=== PATIENT | female | born 1940 | race Caucasian/White ===

== ENCOUNTER → 2016-11-09 | Outpatient (CLI) | payer OTHER ==
[~2016-11-09] MED LIST: CALC500C70 PO; CHOL100010 PO; CHOL20009 PO; DICY10CA12 PO; ENOX80IN SQ; LACT1CAP6 PO; LORA-741 PO; MAGN250T3 PO; MISCCAP80; MULTTAB58 PO; WARF2TAB PO; WARF3TAB PO; ZC25 PO; ZNTT/150 PO; [UNRECOGNIZED DRUG - CODE] PO
[2016-11-09 11:18] LABS: BASO % 1.4 %; BASO ABS # 0.07 K/uL (0-0.2); COMPLETE YES; EOS % 3.1 %; IG% 0.2 %; LYMPH % 32.7 %; MEAN CELL VOLUME 96.4 fL (80-100); MEAN CORPUSCULAR HEMOGLOBIN 30.8 pg (25-34); MEAN PLATELET VOLUME 10.8 fL (7.4-10.4); MONO % 7.2 %; NEUT % 55.4 %; PLATELET COUNT 319 K/uL (130-400); RED BLOOD COUNT 4.67 M/uL (4.2-5.4); WHITE BLOOD COUNT 4.89 K/uL (4.8-10.8)
[2016-11-09 11:43] LABS: CALCIUM 9.1 mg/dl (8.5-10.1)
[2016-11-09 11:49] LABS: ALT/SGPT 32 U/L (12-78); AST/SGOT 23 U/L (15-37); BLOOD UREA NITROGEN 22 mg/dl (7-18); BUN/CREATININE RATIO 19.7 (10-20); CARBON DIOXIDE 30 mmol/L (21-32); CHLORIDE 105 mmol/L (98-107); GLUCOSE 92 mg/dl (70-99); POTASSIUM 4.2 mmol/L (3.5-5.1); SODIUM 142 mmol/L (136-145)
== END | disposition home or self-care (01) ==
LOC: C.LABBC 07:44
PROVIDERS: ATTEND Internal Medicine
DX: M85.80 Other specified disorders of bone density and structure, unspecified site (principal); M19.90 Unspecified osteoarthritis, unspecified site; Z79.01 Long term (current) use of anticoagulants; D68.51 Activated protein C resistance

== ENCOUNTER → 2017-01-01 | Day surgery (SDC) | payer OTHER ==
[2016-12-21 12:02] VITALS: Ht 160 cm; Wt 56.8 kg
[~2017-01-01] VITALS: Ht 160 cm; Wt 56.8 kg
[~2017-01-01] MED LIST changes: +ATROPINE SULFATE 0.1 MG/ML 5ML SYR IV PRN; -CHOL100010 PO; -DICY10CA12 PO; +EpHEDrine SULFATE INJ 50 MG/ML AMP IV PRN; -LACT1CAP6 PO; +LIDOCAINE HCL 2% 2 ML VIAL (20MG/ML) ONE; +PROPOFOL IV EMULSION 10 MG/ML 20 ML VIAL IV ONE; +SODIUM CHLORIDE 0.9% 500ML 500 ML IV ONE; -[UNRECOGNIZED DRUG - CODE] PO
--- NOTE | 2017-01-01 14:12 | Endo History and Physical ---
History & Physical Date of Service: Jan 01, 2017. Chief Complaint: Reflux and atypical chest pain Referring Physician: Dr. Cummings History of Present Illness 76 yo CF who presents for EGD secondary to atypical chest pain and GERD. Past Medical History Arthritis, Pulmonary Emboli, Reflux, Blood Dyscrasias, Hypertension, Thrombophlebitis Past Surgical History Hx Cardiac Surgery: No Hx Abdominal Surgery: Yes (, OVARIAN SURGERY FOR FERTILITY) Hx Post-Op Nausea and Vomiting: No Hx Orthopedic: Yes (RT BUNIONECTOMY) Hx Urinary Tract Surgery: Yes (URETHRA LASER) Family History IBD Social History Smoking Status: Former Smoker Hx Substance Use: No Hx Alcohol Use: Yes (RARELY A GLASS OF WINE) Allergies Coded Allergies: Meperidine (Verified Allergy, Unknown, "CAN'T REMEMBER", 01/01/17) Phenobarbital (Verified Allergy, Unknown, ITCHING, 01/01/17) Tamsulosin (Verified Adverse Reaction, Severe, FAINTED, 01/01/17) Current Medications Reported Home Medications Medications Dose Route/Sig Max Daily Dose Days Date Category Dose Instructions Probiotic (Probiotic Product) 1 Cap Cap 01/01/17 Reported Multivitamin (Multiple Vitamin) 1 Tab Tab 1 Dose PO BID 12/21/16 Reported Magnesium 250 mg (Magnesium) 1 Tab Tab 1 Tab PO QPM 12/21/16 Reported Vitamin D (Cholecalciferol) 2,000 Unit Tab 1 Tab PO QAM 12/21/16 Reported Bisoprolol Fumarate/[place] 2.5-6.25 mg (Bisoprolol Fumarate) 1 Ea Tab 1 Tab PO QAM 12/21/16 Reported Coumadin (Warfarin Sodium) 3 Mg Tab 3 Mg PO 5XWK 30 06/15/15 Reported Coumadin (Warfarin Sodium) 2 Mg Tab 2 Mg PO 2XWK 30 06/15/15 Reported TAKES SUN AND SUNDAY Ativan (Lorazepam) 0.5 Mg Tab 0.5 Mg PO HS PRN 06/15/15 Reported Zantac (Ranitidine HCl) 150 Mg Tab 1 Tab PO BID 30 06/15/15 Reported Os-Gregorio 500 Plus D (Calcium/Vitamin D) Tab 1 Tab PO QPM 06/15/15 Reported Vital Signs Weight (Kilograms): 56.82 Height (Feet): 5 Height (Inches): 3 Date Time Temp Pulse Resp B/P (MAP) Pulse Ox O2 Delivery O2 Flow Rate FiO2 01/01/17 13:50 36.4 78 20 159/78 (105) 100 Room Air Physical Exam General Appearance: WD/WN, no apparent distress Respiratory/Chest: Auscultation: breath sounds normal Cardiovascular: Heart Auscultation: RRR Abdomen: Bowel Sounds: normal Inspection & Palpation: soft, non-distended, no tenderness, guarding & rebound Assessment and Plan Assessment: 76 yo CF who presents for EGD secondary to atypical chest pain and GERD. Plan: Proceed with EGD.
--- NOTE | 2017-01-01 14:31 | GI REPORT ---
Procedure Date: 01/01/2017 2:13 PM Procedure: Upper GI endoscopy Indications: Gastro-esophageal reflux disease, Chest pain (non cardiac) Medicines: Monitored Anesthesia Care Complications: No immediate complications. Estimated Blood Loss: Estimated blood loss: none. Procedure: Pre-Anesthesia Assessment: - Prior to the procedure, a History and Physical was performed, and patient medications and allergies were reviewed. The patient's tolerance of previous anesthesia was also reviewed. The risks and benefits of the procedure and the sedation options and risks were discussed with the patient. All questions were answered, and informed consent was obtained. Prior Anticoagulants: The patient last took Coumadin (warfarin) 4 days and Lovenox (enoxaparin) 2 days prior to the procedure. ASA Grade Assessment: III - A patient with severe systemic disease. After reviewing the risks and benefits, the patient was deemed in satisfactory condition to undergo the procedure. After obtaining informed consent, the endoscope was passed under direct vision. Throughout the procedure, the patient's blood pressure, pulse, and oxygen saturations were monitored continuously. The scope was introduced through the mouth, and advanced to the second part of duodenum. The upper GI endoscopy was accomplished without difficulty. The patient tolerated the procedure well. Findings: The Z-line was irregular. Biopsies were taken with a cold forceps for histology. A small hiatus hernia was present. The examined duodenum was normal. Impression: - Z-line irregular. Biopsied. - Small hiatus hernia. - Normal examined duodenum. Recommendation: - Resume previous diet. - Continue present medications. - Await pathology results. - Return to GI clinic as previously scheduled. Arnel Gracia, DO 01/01/2017 2:30:44 PM This report has been signed electronically. Note Initiated On: 01/01/2017 2:13 PM I attest to the content of the Intraoperative Record and orders documented therein, exceptions below
--- NOTE | 2017-01-01 14:32 | Discharge Instructions ---
Endoscopy Patient Instructions Date / Procedure(s) Performed Jan 01, 2017. EGD Allergy Information Coded Allergies: Meperidine (Verified Allergy, Unknown, "CAN'T REMEMBER", 01/01/17) Phenobarbital (Verified Allergy, Unknown, ITCHING, 01/01/17) Tamsulosin (Verified Adverse Reaction, Severe, FAINTED, 01/01/17) Discharge Date / Findings Jan 01, 2017. Esophageal biopsies Hiatal hernia Medication Instructions Stopped Medication(s): Coumadin stopped on 12-28-16. OK to resume all medications today as prescribed Reported Home Medications Medications Dose Route/Sig Max Daily Dose Days Date Category Dose Instructions Lovenox (Enoxaparin Sodium) 80 Mg/0.8 Ml Inj 80 Mg SQ DAILY 01/01/17 Reported Probiotic (Probiotic Product) 1 Cap Cap 01/01/17 Reported Multivitamin (Multiple Vitamin) 1 Tab Tab 1 Dose PO BID 12/21/16 Reported Magnesium 250 mg (Magnesium) 1 Tab Tab 1 Tab PO QPM 12/21/16 Reported Vitamin D (Cholecalciferol) 2,000 Unit Tab 1 Tab PO QAM 12/21/16 Reported Bisoprolol Fumarate/[place] 2.5-6.25 mg (Bisoprolol Fumarate) 1 Ea Tab 1 Tab PO QAM 12/21/16 Reported Coumadin (Warfarin Sodium) 3 Mg Tab 3 Mg PO 5XWK 30 06/15/15 Reported Coumadin (Warfarin Sodium) 2 Mg Tab 2 Mg PO 2XWK 30 06/15/15 Reported TAKES SUN AND SUNDAY Ativan (Lorazepam) 0.5 Mg Tab 0.5 Mg PO HS PRN 06/15/15 Reported Zantac (Ranitidine HCl) 150 Mg Tab 1 Tab PO BID 30 06/15/15 Reported Os-Gregorio 500 Plus D (Calcium/Vitamin D) Tab 1 Tab PO QPM 06/15/15 Reported Provider Instructions Activity Restrictions - No exercising or heavy lifting for 24 hours. - Do not drink alcohol the day of the procedure. - Do not drive a car or operate machinery until the day after the procedure. - Do not make any important decisions or sign important papers in 24 hours after the procedure. Following Day: - Return to full activity which may include returning to work/school. Diet Start your diet with liquids and light foods (jello, soup, juice, toast). Then eat your usual diet if not nauseated. Treatment For Common After Affects For mild abdominal pain, bloating, or excessive gas: - Rest - Eat lightly - Lie on right side Follow-Up Information Follow-up with Dr. Cummings as scheduled Anesthesia Information What You Should Know You have had a procedure that required some medicine to reduce anxiety and discomfort. This treatment is called moderate sedation. After receiving the treatment, you may be sleepy, but you will be able to breathe on your own. The effects of the treatment may last for several hours. Follow these instructions along with Activity/Diet recommendations noted above: * Do NOT do anything where dizziness or clumsiness would be dangerous. * Rest quietly at home today, then you can be up and about tomorrow. * Have a responsible person stay with you the rest of today. * You may have had an I.V. today. If so, you may take the dressing off later today. Recommendations Call your doctor if: * Trouble breathing * Continuous vomiting for more than 24 hours * Temperature above 101 degrees * Severe abdominal pain or bloating * Pain not relieved by pain medicine ordered * There is increased drainage or redness from any incision * A large amount of rectal bleeding greater than 2-3 tablespoons. (If you had a polyp/s removed or have hemorrhoids, a small amount of blood - from the rectum is to be expected.) * You have any unanswered questions or concerns. IN THE EVENT OF A SERIOUS EMERGENCY, GO TO THE NEAREST EMERGENCY ROOM Your discharge instructions were prepared by provider Arnel Gracia. Patient Instructions Signature Page Padmini Lockhart Patient (or Guardian) Signature/Date: I have read and understand the instructions given to me by my caregivers. Caregiver/RN/Doctor Signature/Date: The above-named patient and/or guardian has received patient instructions on this date. + Original Patient Signature Page (only) stays with chart. Please make copy for patient.
--- NOTE | 2017-01-01 14:52 | Anesthesiology Progress Note ---
Anesthesia Post Op Note Date & Time Jan 01, 2017 at 14:51 Vital Signs Pain Intensity: 0 Vital Signs Past 12 Hours Date Time Temp Pulse Resp B/P (MAP) Pulse Ox O2 Delivery O2 Flow Rate FiO2 01/01/17 14:28 70 14 107/53 (71) 99 Room Air 01/01/17 13:50 36.4 78 20 159/78 (105) 100 Room Air Notes Mental Status: alert / awake / arousable, participated in evaluation Pt Amnestic to Procedure: Yes Nausea / Vomiting: adequately controlled Pain: adequately controlled Airway Patency, RR, SpO2: stable & adequate BP & HR: stable & adequate Hydration State: stable & adequate Anesthetic Complications: no major complications apparent
[2017-01-01 15:01] VITALS: BP 142/87; PULSE 72; O2SAT 98
== END | disposition home or self-care (01) ==
LOC: C.GI 13:26
PROVIDERS: ATTEND Internal Medicine
DX: K21.9 Gastro-esophageal reflux disease without esophagitis (principal); K20.9 Esophagitis, unspecified; K31.89 Other diseases of stomach and duodenum; K44.9 Diaphragmatic hernia without obstruction or gangrene; I10 Essential (primary) hypertension; G51.0 Bell's palsy; D68.51 Activated protein C resistance; M19.90 Unspecified osteoarthritis, unspecified site; Z90.89 Acquired absence of other organs; Z98.890 Other specified postprocedural states; Z86.711 Personal history of pulmonary embolism; Z87.891 Personal history of nicotine dependence; Z79.01 Long term (current) use of anticoagulants; Z68.22 Body mass index [BMI] 22.0-22.9, adult

== ENCOUNTER → 2017-02-08 | Outpatient (CLI) | payer OTHER ==
[~2017-02-08] MED LIST changes: -ATROPINE SULFATE 0.1 MG/ML 5ML SYR IV PRN; -EpHEDrine SULFATE INJ 50 MG/ML AMP IV PRN; -LIDOCAINE HCL 2% 2 ML VIAL (20MG/ML) ONE; -PROPOFOL IV EMULSION 10 MG/ML 20 ML VIAL IV ONE; -SODIUM CHLORIDE 0.9% 500ML 500 ML IV ONE
--- NOTE | 2017-02-08 12:15 | DIAGNOSTIC IMAGING REPORT ---
ULTRASOUND OF THE THYROID GLAND CLINICAL HISTORY: Thyroid nodule. COMPARISON STUDY: Thyroid ultrasound dated 02/16/2016. TECHNIQUE: Real-time, grayscale, and color flow sonography of the thyroid gland is performed utilizing a high-frequency linear transducer. Images are reviewed in the transverse and longitudinal planes. FINDINGS: Right lobe: The right lobe of the thyroid gland is normal in size and markedly heterogeneous in echotexture, measuring 4.7 x 1.5 x 1.4 cm. The right lobe appears hyperemic on color imaging. A colloid cyst in the upper pole measures 6 mm. A honeycomb nodule in the posterior midpole measures 0.8 x 0.4 x 0.7 cm (previously measured 0.8 x 0.4 x 0.6 cm). Additional subcentimeter nodules are noted. Left lobe: The left lobe of the thyroid gland is normal in size and markedly heterogeneous in echotexture, measuring 4.3 x 1.3 x 1.6 cm. The left lobe appears hyperemic on color imaging. Scattered colloid cysts measure up to 6 mm. There are numerous subcentimeter hypoechoic nodules. The largest is in the midpole and measures 0.8 x 0.4 x 0.7 cm (previously measuring 0.6 x 0.5 x 0.6 cm). Isthmus: The thyroid isthmus is heterogeneous and measures 0.3 cm in AP diameter. A hypoechoic nodule in the left isthmus measures 1.3 x 0.4 x 1.0 cm (producing measured up to 1.1 cm). A solid nodule in the right aspect of the isthmus measures 0.9 x 0.4 x 0.7 cm (previously measured up to 0.9 cm). IMPRESSION: 1. Markedly heterogeneous and hyperemic thyroid gland. The appearance suggests the sequelae of thyroiditis. Correlation with serum thyroid function studies will be required. 2. There are numerous small thyroid nodules, not significantly changed from prior studies. Electronically signed by: Ryder Aldrich M.D. 02/08/2017 12:14 PM Dictated Date/Time: 02/08/2017 12:07 PM
== END | disposition home or self-care (01) ==
LOC: C.ULTRBC 11:13
PROVIDERS: ATTEND Internal Medicine
DX: E04.1 Nontoxic single thyroid nodule (principal)

== ENCOUNTER → 2017-02-22 | Outpatient (CLI) | payer OTHER ==
--- NOTE | 2017-02-22 13:47 | DIAGNOSTIC IMAGING REPORT ---
BILATERAL LOWER EXTREMITY VENOUS DOPPLER HISTORY: M79.669 Calf [id number] COMPARISON STUDY: None. FINDINGS: There is normal compressibility, flow, and augmentation within the bilateral lower extremity deep venous systems. IMPRESSION: No DVT within the right or left lower extremity. Electronically signed by: Bisohp Teixeira M.D. 02/22/2017 1:45 PM Dictated Date/Time: 02/22/2017 1:45 PM
--- NOTE | 2017-03-09 13:37 | CODING QUERY MEDICAL NECESSITY ---
SUPPORTING DIAGNOSIS NEEDED A supporting diagnosis is required for the test/procedure performed on this patient in order for us to be reimbursed by the patient's insurance. Please provide a supporting diagnosis for the following test/procedure listed below next to the test name along with your signature. *If there is no additional diagnosis for this patient that would support the following test/procedure please document that below next to the test/procedure. Test(s)/Procedure(s) that require a supporting diagnosis: * US VENOUS DOPPLER LWR EXT BILA DIAGNOSIS: Provider Signature: Date: Thank you Janiya Bethune [employer] Business Plan Information Management Once completed, please kindly fax back to [phone] For questions please call [phone]
== END | disposition home or self-care (01) ==
LOC: C.ULTR 13:00
PROVIDERS: ATTEND Physician Assistant
DX: M79.669 Pain in unspecified lower leg (principal); Z79.01 Long term (current) use of anticoagulants; Z86.718 Personal history of other venous thrombosis and embolism

== ENCOUNTER → 2017-04-09 | Outpatient (CLI) | payer OTHER ==
--- NOTE | 2017-04-09 12:36 | MAMMOGRAPHY REPORT ---
BILATERAL DIGITAL SCREENING MAMMOGRAM WITH CAD: 04/09/2017 CLINICAL HISTORY: Routine screening. Patient has no complaints. TECHNIQUE: Bilateral CC and MLO views were obtained. Current study was also evaluated with a Compute r Aided Detection (CAD) system. COMPARISON: Comparison is made to exams dated: 04/06/2016 mammogram, 04/05/2015 mammogram, 04/02/2014 m ammogram, 05/23/2013 mammogram, 05/22/2012 mammogram, and 05/05/2011 mammogram - [facility]. BREAST COMPOSITION: The tissue of both breasts is heterogeneously dense, which may obscure small mas ses. FINDINGS: A linear scar marker overlies the lateral left breast. There are scattered stable benign-a ppearing calcifications in the breasts. No obvious new mass, architectural distortion or cluster of suspicious microcalcifications is seen. IMPRESSION: ACR BI-RADS CATEGORY 1: NEGATIVE There is no mammographic evidence of malignancy. A 1 year screening mammogram is recommended. The pa tient will receive written notification of the results. Approximately 10% of breast cancers are not detected with mammography. A negative mammographic report should not delay biopsy if a clinically suggestive mass is present. Yudith Gutierrez M.D. ay/:04/09/2017 12:21:07 [employer] Eng[employer]ver: Chaparrita Hawthorne, [facility] letter sent: Normal 1/2 BI-RADS Code: ACR BI-RADS Category 1: Negative
== END | disposition home or self-care (01) ==
LOC: C.MAMM 09:46
PROVIDERS: ATTEND Obstetrics & Gynecology
DX: Z12.31 Encounter for screening mammogram for malignant neoplasm of breast (principal)

== ENCOUNTER → 2017-04-09 | Outpatient (CLI) | payer OTHER | END | disposition home or self-care (01) | LOC: C.MAMM 09:44 | PROVIDERS: ATTEND Internal Medicine | DX: M85.88 Other specified disorders of bone density and structure, other site (principal); M85.851 Other specified disorders of bone density and structure, right thigh; M85.852 Other specified disorders of bone density and structure, left thigh; Z12.31 Encounter for screening mammogram for malignant neoplasm of breast ==

== ENCOUNTER → 2017-05-18 | Outpatient (CLI) | payer OTHER ==
[2017-05-18 11:01] LABS: HEMATOCRIT 43.8 % (37-47); MEAN CELL VOLUME 94.8 fL (80-100); MEAN CORPUSCULAR HEMOGLOBIN 32.5 pg (25-34); MEAN CORPUSCULAR HGB CONC 34.2 g/dl (32-36); MEAN PLATELET VOLUME 11.1 fL (7.4-10.4); PLATELET COUNT 293 K/uL (130-400); RED BLOOD COUNT 4.62 M/uL (4.2-5.4)
[2017-05-18 11:08] LABS: INR 2.8 (0.9-1.1); PROTHROMBIN TIME (PATIENT) 31.1 SECONDS (9.0-12.0)
[2017-05-18 11:23] LABS: BLOOD UREA NITROGEN 15 mg/dl (7-18); BUN/CREATININE RATIO 15.6 (10-20); CALCIUM 9.4 mg/dl (8.5-10.1); CARBON DIOXIDE 30 mmol/L (21-32); CHLORIDE 106 mmol/L (98-107); CREATININE 0.99 mg/dl (0.60-1.20); GLUCOSE 90 mg/dl (70-99); POTASSIUM 4.1 mmol/L (3.5-5.1); SODIUM 142 mmol/L (136-145)
[2017-05-18 11:34] LABS: CHOLESTEROL 181 mg/dl (0-200); CHOLESTEROL/HDL RATIO 1.9; HDL CHOLESTEROL 95 mg/dl; LDL CHOLESTEROL CALCULATED 61 mg/dl; TRIGLYCERIDES 123 mg/dl (0-150); VERY LOW DENSITY LIPOPROT CALC 25 mg/dl
== END ==
LOC: C.LABBC 08:25
PROVIDERS: ATTEND Internal Medicine
DX: Z79.01 Long term (current) use of anticoagulants (principal); I10 Essential (primary) hypertension; E04.1 Nontoxic single thyroid nodule; D68.51 Activated protein C resistance

== ENCOUNTER → 2017-11-13 | Outpatient (CLI) | payer OTHER ==
[~2017-11-13] MED LIST changes: +RANI150T85 PO; -ZNTT/150 PO
[2017-11-13 11:41] LABS: HEMATOCRIT 43.4 % (37-47); HEMOGLOBIN 14.6 g/dL (12.0-16.0); MEAN CELL VOLUME 92.5 fL (80-100); MEAN CORPUSCULAR HEMOGLOBIN 31.1 pg (25-34); MEAN CORPUSCULAR HGB CONC 33.6 g/dl (32-36); MEAN PLATELET VOLUME 10.8 fL (7.4-10.4); PLATELET COUNT 306 K/uL (130-400); RED CELL DISTRIBUTION WIDTH CV 13.4 % (11.5-14.5); RED CELL DISTRIBUTION WIDTH SD 45.2 fL (36.4-46.3)
[2017-11-13 12:15] LABS: BLOOD UREA NITROGEN 19 mg/dl (7-18); CALCIUM 8.9 mg/dl (8.5-10.1); CARBON DIOXIDE 29 mmol/L (21-32); GLUCOSE 100 mg/dl (70-99); POTASSIUM 3.4 mmol/L (3.5-5.1); SODIUM 139 mmol/L (136-145)
== END | disposition home or self-care (01) ==
LOC: C.LABBC 07:31
PROVIDERS: ATTEND Internal Medicine
DX: E04.1 Nontoxic single thyroid nodule (principal); I10 Essential (primary) hypertension; K58.9 Irritable bowel syndrome, unspecified

== ENCOUNTER → 2017-11-19 | Outpatient (CLI) | payer OTHER ==
--- NOTE | 2017-11-19 12:31 | DIAGNOSTIC IMAGING REPORT ---
L-SPINE MIN 4 VIEWS ROUTINE HISTORY: 77 years-old Female M54.9 Chronic back pain greater than 3 months duration COMPARISON: Chest radiographs 06/15/2015 TECHNIQUE: 5 views of the lumbar spine FINDINGS: Convex left curvature of the lumbar spine. No acute fracture or subluxation identified. Multilevel intervertebral disc space narrowing with spondylitic spurring and moderate facet arthrosis with intervertebral disc space narrowing most pronounced at L4-L5 which is at least moderate. The bones appear mildly demineralized. IVC filter noted at the level of L4. Moderate degenerative changes about the bilateral hips with suggested vascular calcifications superior to the left hip. IMPRESSION: 1. No acute fracture or subluxation. 2. Levoscoliosis with degenerative changes as above. The above report was generated using voice recognition software. It may contain grammatical, syntax or spelling errors. Electronically signed by: Heri Barahona M.D. 11/19/2017 12:30 PM Dictated Date/Time: 11/19/2017 12:28 PM
== END | disposition home or self-care (01) ==
LOC: C.RAD1850 12:12
PROVIDERS: ATTEND Internal Medicine
DX: M54.9 Dorsalgia, unspecified (principal)